=== PATIENT | female | born 1960 | race Caucasian/White ===

== ENCOUNTER 2023-12-05 08:19 | Inpatient (IN) ==
[~2023-12-05 08:19] MED LIST: Naloxone 0.4 mg VIAL 0.4 mg/ml 1 ml VIAL IV PRN; fentaNYL 100 mcg/2 ml 50 MCG/ML VIAL IV PRN
[2023-12-05] MEDS ORDERED: Heparin 5000 UNITS/ML 1 mL VIAL ONE (08:46)
[2023-12-05] MEDS ORDERED: Scopolamine 1 mg/72hr PATCH ONE (08:46)
[2023-12-05] MEDS ORDERED: ceFAZolin 2 GM in NS PREMIX 2 GM/100 ML BAG IVPB ONE (08:47)
[2023-12-05] MEDS: Buffered Lidocaine 1% SYRIN 1 ml INTRADERM ONE (08:59)
[2023-12-05] MEDS: Scopolamine 1 mg/72hr PATCH TRANSDERM ONE (08:59)
[2023-12-05 09:00] LABS: Rapid COVID-19 Molecular Undetected (Undetected)
[2023-12-05] MEDS ORDERED: fentaNYL 250 mcg/5 ml 50 MCG/ML 5 ml VIAL (250 MCG) ONE (09:16)
[2023-12-05] MEDS ORDERED: Rocuronium 50 mg VIAL 10 mg/ml 5 ml VIAL (50 mg) ONE ×2 (09:16→13:06)
[2023-12-05] MEDS ORDERED: Midazolam 2 mg/2 ml VIAL 1 mg/ml 2 ml VIAL (2 mg) ONE (09:16)
[2023-12-05] MEDS ORDERED: Propofol 10 MG/ML 20 ML BTL ONE (09:16)
[2023-12-05] MEDS ORDERED: Lidocaine 2% PF 5 ML VIAL ONE (09:16)
[2023-12-05] MEDS ORDERED: Succinylcholine 200 mg VIAL 20 mg/ml 10 ml VIAL (200 mg) ONE (09:16)
[2023-12-05] MEDS ORDERED: Methylene Blue 1% (ANTIDOTE) 10 MG/ML 10 ML SDV VIAL IVPB ONE (11:43)
[2023-12-05] MEDS ORDERED: Bupivacaine 0.25% EPI 200,000 30 ML SDV ONE (11:43)
[2023-12-05] MEDS ORDERED: Ondansetron 4 mg VIAL 2 MG/ML 2 ml VIAL IV PRN (13:24)
[2023-12-05] MEDS ORDERED: Naloxone 0.4 mg VIAL 0.4 mg/ml 1 ml VIAL IV PRN (13:24)
[2023-12-05] MEDS ORDERED: fentaNYL 100 mcg/2 ml 50 MCG/ML VIAL IV PRN (13:24)
[2023-12-05] MEDS ORDERED: Ondansetron 4 mg VIAL 2 MG/ML 2 ml VIAL ONE ×2 (13:27→15:18)
[2023-12-05] MEDS ORDERED: Dexamethasone IV 4 MG/ML VIAL 1 ml VIAL ONE (13:27)
[2023-12-05] MEDS ORDERED: HYDROmorphone 1 MG/1 ML SYRINGE IV SLOW PU PRN (14:47)
[2023-12-05] MEDS ORDERED: HYDROcodone/ACET. 7.5/325 LIQ 15 ML UDC PO PRN (14:47)
[2023-12-05] MEDS ORDERED: HYDROmorphone 0.5 MG/0.5 ML SYRINGE IV SLOW PU PRN (14:47)
[2023-12-05] MEDS ORDERED: Metoclopramide 5 MG/ML VIAL (10 mg) ONE (15:18)
[2023-12-05] MEDS: Metoclopramide 5 MG/ML VIAL (10 mg) IV PRN (15:20)
[2023-12-05] MEDS: Ondansetron 4 mg VIAL 2 MG/ML 2 ml VIAL IV PRN (15:20)
[2023-12-05] MEDS: Lactated Ringers 1000 ml BAG 1,000 ML IV SCH ×2 (16:59→17:00)
[2023-12-05] MEDS: Heparin 5000 UNITS/ML 1 mL VIAL SUBCUT SCH (21:55)
[2023-12-05] MEDS: Famotidine IV 10 MG/ML 2 ml VIAL (20 mg) IV SLOW PU SCH (21:57)
[2023-12-06 10:21] VITALS: BP 132/67
[2023-12-06] MEDS ORDERED: D5W 1/2 NS KCl 20 meq 1000 ml 1,000 ML IV SCH (15:00)
== END 2023-12-06 14:30 | disposition home or self-care (01) | DRG 403 ==
LOC: AA 08:19 → SSU 14:47
PROVIDERS: ADMIT Surgery; ATTEND Surgery